=== PATIENT | male | born 1955 | race Caucasian/White ===

== ENCOUNTER 2018-08-16 08:48 | Day surgery (SDC) | payer BC ==
[2018-08-11 14:29] VITALS: BMI 29.4
[~2018-08-16 08:48] MED LIST: LACTATED RINGERS 1,000 ML IV SCH; LIDOCAINE 1% 20 ML VIAL (10MG/ML) FOR IV START INTRADERMA PRN
[2018-08-16 09:34] VITALS: TEMP 97.7
[2018-08-16] MEDS ORDERED: MIDAZOLAM 2 MG/2 ML VIAL ONE (10:06)
[2018-08-16] MEDS ORDERED: PROPOFOL 10 MG/ML 20 ML VIAL IV ONE (10:06)
[2018-08-16] MEDS ORDERED: fentaNYL (PF) 50 MCG/ML 2 ML AMP ONE (10:06)
--- NOTE | 2018-08-16 10:17 | P.PCN ---
Date of Procedure: 08/16/18 Procedure(s) Performed: BRIEF HISTORY: Patient is a 63-year-old, pleasant, white male, with history of GERD/Vang's esophagus is scheduled for a surveillance upper endoscopy today.. PROCEDURE PERFORMED: Esophagogastroduodenoscop with biopsy PREOPERATIVE DIAGNOSIS: GERD/surveillance of Vang's esophagus IV sedation per anesthesia. PROCEDURE: After informed consent was obtained, the patient was brought into the endoscopy unit. IV sedation was administered by Anesthesia under continuous monitoring. Initially the Olympus GIF-140 video endoscope was inserted into the mouth. Esophagus intubated without any difficulty. It was gradually advanced into the stomach and duodenum and carefully examined. The bulb and the second part of the duodenum appeared normal. The scope at this time was withdrawn to the stomach, adequately insufflated with air, and upon careful examination, mucosa of the antrum, body, cardia and the fundus appeared normal. The scope was then withdrawn into the esophagus. Moderate size hiatal hernia noted. The GE junction was located at 36 cm from the incisors. There was a long 7 or Vang's esophagus extending from 31-35 cm from the incisors and multiple biopsies were done from the segment of Vang's esophagus or 8 the mucosa appeared normal. The rest of the esophagus appeared normal. There were no erosions or ulcerations seen and the patient tolerated the procedure well. IMPRESSION: 1. Long segment Vang's esophagus extending from 3136 cm from the incisors status post multiple biopsies. 2. Moderate size hiatal hernia. RECOMMENDATIONS: The findings of this examination were discussed with the patient as well as his family. He was advised to follow with the biopsy results. he will continue Protonix 40 mg daily and follow antireflux measures. If the biopsy has no evidence of dysplasia, he can have a repeat upper endoscopy in 2-3 years
[2018-08-16 10:22] VITALS: BP 118/74; PULSE 78
[2018-08-16 10:37] VITALS: RESP 16
== END 2018-08-16 11:06 | disposition home or self-care (01) ==
LOC: ORWHC2ENDO 08:48
PROVIDERS: ATTEND Internal Medicine Gastroenterology
DX: K22.70 Barrett's esophagus without dysplasia (principal); K21.9 Gastro-esophageal reflux disease without esophagitis; K44.9 Diaphragmatic hernia without obstruction or gangrene; F32.9 Major depressive disorder, single episode, unspecified; I10 Essential (primary) hypertension; N40.0 Benign prostatic hyperplasia without lower urinary tract symptoms; Z79.899 Other long term (current) drug therapy
CPT/HCPCS: 88305; 43239; J2250; J3010; J2704

== ENCOUNTER 2019-02-13 06:53 | Emergency (ER) | payer BC ==
[2019-02-13 07:04] VITALS: BP 152/85; PULSE 79; RESP 16; TEMP 97.6
--- NOTE | 2019-02-13 07:21 | ED ---
General Adult HPI - General Chief complaint: Extremity Injury, Upper Stated complaint: R arm bruising/swelling Time Seen by Provider: 02/13/19 07:06 Source: patient Mode of arrival: ambulatory Limitations: no limitations - History of Present Illness Initial comments: Dictation was produced using [employer] dictation software. please excuse any grammatical, word or spelling errors. Chief Complaint: 63-year-old male past medical history of hypertension and prostate disease GERD presents with right biceps pain and ecchymoses. History of Present Illness: An is 63-year-old male yesterday he was cleaning his pool. In the afternoon he was in the middle cleaning his pool when he felt a pop. Several hours later he noted significant bruising to his right biceps area. He noted that his biceps muscle is a little balled up proximally. Patient hurt his shoulder after a fall approximately one month ago. States he has an MRI scheduled for shoulder on Tuesday. Denies any neurovascular symptoms in the extremity. The ROS documented in this emergency department record has been reviewed and confirmed by me. Those systems with pertinent positive or negative responses have been documented in the HPI. All other systems are other negative and/or noncontributory. PHYSICAL EXAM: General Impression: Alert and oriented x3, not in acute distress HEENT: Normocephalic atraumatic, extra-ocular movements intact, pupils equal and reactive to light bilaterally, mucous membranes moist. Cardiovascular: Heart regular rate and rhythm, S1&S2 audible, no murmurs, rubs or gallops Chest: Lungs clear to auscultation bilaterally, no rhonchi, no wheeze, no rales Abdomen: Bowel sounds present, abdomen soft, non-tender, non-distended, no organomegaly Musculoskeletal: Pulses present and equal in all extremities, no peripheral edema Right upper extremity: Proximal fullness to the biceps of the right upper extrem ity, mild weakness with elbow flexion of the right upper extremity, ecchymoses to the medial humeral area Motor: no focal deficits noted Neurological: CN II-XII grossly intact, no focal motor or sensory deficits noted Skin: Intact with no visualized rashes Psych: Normal affect and mood ED course: 63-year-old male with clinical presentation consistent with biceps tendon rupture. Vital signs upon arrival are within acceptable limits.Humerus x-rays are unremarkable. Patient placed in a right upper extremity sling is given a referral to orthopedic. Patient is advised to make an appointment this week. Patient is counseled on activity restrictions. He is told to be nonweightbearing to the right upper extremity. - Related Data Home Medications Medication Instructions Recorded Confirmed Ascorbic Acid [Vitamin C] 1,000 mg PO DAILY 02/17/16 02/13/19 [place]-3 Fatty Acids/Fish Oil [Fish 1,000 mg PO DAILY 02/17/16 02/13/19 Oil 1,000 mg Softgel] amLODIPine BESYLATE [Norvasc] 5 mg PO DAILY 02/17/16 02/13/19 ALPRAZolam [Xanax] 0.25 mg PO BID PRN 08/11/18 02/13/19 Multivitamins, Thera [Multivitamin 1 tab PO DAILY 08/11/18 02/13/19 (formulary)] Pantoprazole Sodium [Protonix] 40 mg PO BID 08/11/18 02/13/19 Sildenafil Citrate [Viagra] 50 mg PO ONCE PRN 02/13/19 02/13/19 Allergies Allergy/AdvReac Type Severity Reaction Status Date / Time No Known Allergies Allergy Verified 02/13/19 07:33 Review of Systems ROS Statement: Those systems with pertinent positive or pertinent negative responses have been documented in the HPI. ROS Other: All systems not noted in ROS Statement are negative. Past Medical History Past Medical History: GERD/Reflux, Hypertension, Prostate Disorder Additional Past Medical History / Comment(s): barretts esophagus, ulcer, History of Any Multi-Drug Resistant Organisms: None Reported Past Surgical History: Hernia Repair Additional Past Surgical History / Comment(s): colonsocopy, EGD, Past Anesthesia/Blood Transfusion Reactions: No Reported Reaction Past Psychological History: Anxiety Smoking Status: Former smoker Past Alcohol Use History: None Reported Past Drug Use History: Marijuana - Past Family History Brother(s) Family Medical History: Cancer General Exam Limitations: no limitations Course Vital Signs 02/13/19 06:59 Temperature 97.6 F Pulse Rate 79 Respiratory 16 Rate Blood Pressure 152/85 O2 Sat by Pulse 97 Oximetry Disposition Clinical Impression: Biceps tendon rupture Disposition: HOME SELF-CARE Condition: Good Instructions (If sedation given, give patient instructions): Repairs of the Biceps and Triceps Tendons (DC) Is patient prescribed a controlled substance at d/c from ED?: No Referrals: Vicente Thomson MD [STAFF PHYSICIAN] - 1-2 days Time of Disposition: 07:57
--- NOTE | 2019-02-13 07:41 | XR ---
EXAMINATION TYPE: XR humerus RT DATE OF EXAM: 02/13/2019 CLINICAL HISTORY: Popping injury yesterday with bruising and pain today. TECHNIQUE: Two views of the right humerus are obtained. COMPARISON: None. FINDINGS: There is no acute fracture or dislocation seen in the right humerus. The right shoulder a nd elbow joints appear within normal limits. The overlying soft tissue appears within normal limits. IMPRESSION: No acute fracture or dislocation is evident in the right humerus.
== END 2019-02-13 07:58 | disposition home or self-care (01) ==
LOC: EC 06:53
DX: S46.211A Strain of muscle, fascia and tendon of other parts of biceps, right arm, initial encounter (principal); K21.9 Gastro-esophageal reflux disease without esophagitis; I10 Essential (primary) hypertension; Z87.891 Personal history of nicotine dependence; Z79.899 Other long term (current) drug therapy; Y93.89 Activity, other specified; Y92.34 Swimming pool (public) as the place of occurrence of the external cause
CPT/HCPCS: 99283

== ENCOUNTER → 2019-02-17 | Outpatient (CLI) | payer BC | END | disposition home or self-care (01) | LOC: RADMRIMAIN 07:24 | PROVIDERS: ATTEND Internal Medicine | DX: Z53.9 Procedure and treatment not carried out, unspecified reason (principal) ==

== ENCOUNTER → 2019-03-03 | Outpatient (CLI) | payer BC ==
--- NOTE | 2019-03-03 16:07 | MR ---
EXAMINATION TYPE: MR shoulder RT wo con DATE OF EXAM: 03/03/2019 COMPARISON: None HISTORY: Pain in right shoulder, Fall TECHNIQUE: Multiplanar, multisequence imaging of the right shoulder is performed without contrast. FINDINGS: There is moderate hypertrophic spurring at the AC joint with fluid signal. There is a mild shoulder j oint effusion. There is fluid in the subacromial subdeltoid bursa. The glenoid alison appear intact. S ubscapularis tendon is intact. Biceps tendon shows increased signal on the axial images. There is thi ckening and increased signal in the supraspinatus tendon over the humeral head. There is no retractio n. I see no focal bone destruction. IMPRESSION: There is full-thickness rotator cuff tear without retraction of the supraspinatus tendon. Shoulder joint effusion. 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 There is at least partial tear of the biceps tendon.
== END | disposition home or self-care (01) ==
LOC: RADMRIMAIN 07:41
PROVIDERS: ATTEND Internal Medicine
DX: S46.021A Laceration of muscle(s) and tendon(s) of the rotator cuff of right shoulder, initial encounter (principal); S46.211A Strain of muscle, fascia and tendon of other parts of biceps, right arm, initial encounter; M19.011 Primary osteoarthritis, right shoulder

== ENCOUNTER 2020-08-20 08:53 | Day surgery (SDC) | payer BC ==
[2020-08-18 15:41] VITALS: BMI 28.7
[~2020-08-20 08:53] MED LIST changes: +LIDOCAINE 1% (10MG/ML) FOR IV START INTRADERMA PRN; -LIDOCAINE 1% 20 ML VIAL (10MG/ML) FOR IV START INTRADERMA PRN
[2020-08-20 09:47] VITALS: RESP 16; TEMP 97.4
[2020-08-20] MEDS ORDERED: PROPOFOL 10 MG/ML 20 ML VIAL IV ONE (10:07)
[2020-08-20] MEDS ORDERED: LIDOCAINE 1% INJ 10MG/ML (20 ML MDV) ONE (10:07)
--- NOTE | 2020-08-20 10:19 | P.PCN ---
Date of Procedure: 08/20/20 Procedure(s) Performed: BRIEF HISTORY: Patient is a 65-year-old, pleasant, white male scheduled for an upper endoscopy as a part of surveillance of long-standing history of GERD and Vang's esophagus.. PROCEDURE PERFORMED: Esophagogastroduodenoscopy with biopsy. PREOPERATIVE DIAGNOSIS: GERD/Vang's esophagus. IV sedation per anesthesia. PROCEDURE: After informed consent was obtained, the patient was brought into the endoscopy unit. IV sedation was administered by Anesthesia under continuous monitoring. Initially the Olympus GIF-140 video endoscope was inserted into the mouth. Esophagus intubated without any difficulty. It was gradually advanced into the stomach and duodenum and carefully examined. The bulb and the second part of the duodenum appeared normal. The scope at this time was withdrawn to the stomach, adequately insufflated with air, and upon careful examination, mucosa of the antrum, body, cardia and the fundus appeared normal. The scope was then withdrawn into the esophagus. Under size hiatal hernia noted. The GE junction was located at 39 cm from the incisors. Long segment of Vang's esophagus extending from 34-39 cm from the incisors and multiple biopsies were done from this area. Just proximal to the Vang's esophagus revealed linear erosions and ulcerations consistent with LA grade C reflux esophagitis. The rest of the esophagus appeared normal and the patient tolerated the procedure well. IMPRESSION: 1. Long segment Vang's esophagus extending from 34-39 cm from the incisors status post multiple biopsies 2. Linear erosions and superficial ulcerations just proximal to the Vang's esophagus consistent with LA grade C reflux esophagitis. 3. Moderate size hiatal hernia. RECOMMENDATIONS: The findings of this examination were discussed with the patient as well as his family. She was advised to follow with the biopsy results. If the biopsy shows evidence of Vang's esophagus he can have a repeat upper endoscopy in 2 years.. He was advised to increase omeprazole to 20 mg twice daily and follow antireflux measures
[2020-08-20 10:46] VITALS: BP 1332/78; PULSE 68
== END 2020-08-20 11:13 | disposition home or self-care (01) ==
LOC: ORWHC2ENDO 08:53
PROVIDERS: ATTEND Internal Medicine Gastroenterology
DX: K22.70 Barrett's esophagus without dysplasia (principal); K21.9 Gastro-esophageal reflux disease without esophagitis; K44.9 Diaphragmatic hernia without obstruction or gangrene; I10 Essential (primary) hypertension; Z79.899 Other long term (current) drug therapy
CPT/HCPCS: 88305; 43239; J2001; J2704